=== PATIENT | male | born 2005 | race Caucasian/White ===

== ENCOUNTER 2025-04-17 09:20 | Emergency (ER) | payer OTHER ==
[~2025-04-17] VITALS: Ht 170.2 cm; Wt 63.0 kg
[2025-04-17 09:25] VITALS: BP 131/80; TEMP 36.7; O2SAT 100
[2025-04-17 09:27] VITALS: PULSE 68; RESP 15; O2SAT 100
[2025-04-17] MEDS: KETOROLAC 30MG/ML VIAL IM ONE (09:48)
[2025-04-17] MEDS ORDERED: NAPR-681 MT (10:49)
== END 2025-04-17 11:06 | disposition home or self-care (01) ==
LOC: ER 09:20
DX: S62.009A Unspecified fracture of navicular [scaphoid] bone of unspecified wrist, initial encounter for closed fracture (principal); Z79.1 Long term (current) use of non-steroidal anti-inflammatories (NSAID); Z79.899 Other long term (current) drug therapy; X58.XXXA Exposure to other specified factors, initial encounter; Y93.89 Activity, other specified; Y92.89 Other specified places as the place of occurrence of the external cause; Y99.8 Other external cause status
CPT/HCPCS: 99284; 73090; 73110; 29125; J1885; A6449